=== PATIENT | male | born 1975 | race Caucasian/White ===

== ENCOUNTER → 2021-03-18 | Outpatient (CLI) | payer OTHER ==
--- NOTE | 2021-03-18 12:36 | ECHOF ---
Referral Reason:R01.1 cardiac murmur MEASUREMENTS -------- HEIGHT: 180.3 cm WEIGHT: 72.6 kg BP: RVIDd: 3.7 cm (< 3.3) IVSd: 1.2 cm (0.6 - 1.1) LVIDd: 4.2 cm (3.9 - 5.3) LVPWd: 1.2 cm (0.6 - 1.1) IVSs: 1.3 cm LVIDs: 2.7 cm LVPWs: 1.7 cm LAESV Index (A-L): 18.44 ml/m Ao Diam: 3.1 cm (2.0 - 3.7) AV Cusp: 2.3 cm (1.5 - 2.6) LA Diam: 2.2 cm (2.7 - 3.8) MV EXCURSION: 22.198 mm (> 18.000) MV EF SLOPE: 92 mm/s (70 - 150) EPSS: 0.3 cm MV E Andi: 0.84 m/s MV DecT: 146 ms MV A Andi: 0.73 m/s MV E/A Ratio: 1.15 RAP: 5.00 mmHg RVSP: 26.43 mmHg FINDINGS -------- Sinus rhythm. This was a technically adequate study. The left ventricular size is normal. There is borderline concentric left ventricular hypertrophy. Overall left ventricular systolic function is normal with, an EF between 55 - 60 %. The diastolic filling pattern is normal for the age of the patient 10.99. The right ventricle is mildly enlarged. Normal LA size by volume 22+/-6 ml/m2. The right atrial size is normal. Interatrial and interventricular septum intact. The aortic valve is trileaflet and appears structurally normal. There is no evidence of aortic regu rgitation. There is no evidence of aortic stenosis. Mild mitral regurgitation is present. Mild tricuspid regurgitation present. There is no evidence of pulmonary hypertension. The right v entricular systolic pressure, as measured by Doppler, is 26.43mmHg. There is no pulmonic regurgitation present. The aortic root size is normal. IVC Not well visulized. There is no pericardial effusion. CONCLUSIONS -------- 1. The left ventricular size is normal. 2. There is borderline concentric left ventricular hypertrophy. 3. Overall left ventricular systolic function is normal with, an EF between 55 - 60 %. 4. The right ventricle is mildly enlarged. 5. The aortic valve is trileaflet and appears structurally normal. 6. Mild mitral regurgitation is present. 7. Mild tricuspid regurgitation present. HOSPITAL MEDICINE DIRECTOR: Lilliana Murcia RDCS
== END | disposition home or self-care (01) ==
LOC: RADECHMAIN 10:57
PROVIDERS: ATTEND Family Medicine
DX: I08.1 Rheumatic disorders of both mitral and tricuspid valves (principal)
CPT/HCPCS: 93306

== ENCOUNTER → 2021-05-06 | Outpatient (CLI) | payer OTHER ==
--- NOTE | 2021-05-07 08:29 | EST ---
EXERCISE STRESS AGE: 46 SEX: M HT: 5'11" WT: 160 lbs PROTOCOL: Anil STAGE: 3 DURATION OF EXERCISE: 9:00 HEART RATE REST: 83 BLOOD PRESSURE REST: 121/78 MAXIMUM HEART RATE ACHIEVED: 137 MAXIMUM BLOOD PRESSURE: 153/86 85% MPHR: 150 100% MPHR: 176 METS: 10.3 INDICATIONS: Family history of heart disease RESULTS: Baseline EKG revealed normal sinus rhythm without significant ST-T changes. Patient walked on a standard Anil protocol for 9 minutes, achieved a maximal heart rate of 137 beats per minute, complained of some fatigue, had isolated PVCs. Could not continue any further. He also had some sharp discomfort in the chest. At heart rate of 137 beats per minute, there was no evidence of any ST-segment changes to indicate ischemia. By EKG criteria, this is an inconclusive stress test with limited exercise capacity. If myocardial ischemia is suspected, I would recommend a pharmacological nuclear study. GEORGIE / IRASEMAN: [id number] /
== END | disposition home or self-care (01) ==
LOC: RADNMMAIN 08:21
PROVIDERS: ATTEND Family Medicine
DX: R94.31 Abnormal electrocardiogram [ECG] [EKG] (principal); Z82.49 Family history of ischemic heart disease and other diseases of the circulatory system
CPT/HCPCS: 93017

== ENCOUNTER → 2021-05-10 | Outpatient (CLI) | payer OTHER ==
--- NOTE | 2021-05-10 09:56 | US ---
EXAMINATION TYPE: US liver DATE OF EXAM: 05/10/2021 COMPARISON: NONE CLINICAL HISTORY: R74.01 elevation of levels of liver transaminase. EXAM MEASUREMENTS: Liver Length: 13.1 cm Gallbladder Wall: 0.2 cm CBD: 0.5 cm Right Kidney: 10.8 x 4.2 x 4.8 cm Pancreas: visualized portions wnl Liver: wnl Gallbladder: No stones seen Evidence for sonographic Wagoner's sign: No CBD: wnl Right Kidney: No hydronephrosis or masses seen Pancreas appears within normal limits. Visualized liver appears unremarkable. No gallstones within ga llbladder. No biliary dilatation. No right-sided hydronephrosis. IMPRESSION: No worrisome focal intrahepatic mass or intrahepatic ductal dilatation.
== END | disposition home or self-care (01) ==
LOC: RADUSWWP 08:42
PROVIDERS: ATTEND Family Medicine
DX: R74.01 Elevation of levels of liver transaminase levels (principal)
CPT/HCPCS: 76705

== ENCOUNTER 2021-07-30 05:43 | Day surgery (SDC) | payer OTHER ==
[2021-07-26 14:08] VITALS: BMI 22.3
[2021-07-30] MEDS ORDERED: ALPRAZolam 0.5 MG TAB PO PRN (06:01)
[2021-07-30] MEDS ORDERED: ALPRAZolam 0.25 MG TAB PO PRN (06:01)
[2021-07-30] MEDS ORDERED: SODIUM CHLORIDE 0.9% 1,000 ML in EMPTY BAG 1 BAG IV SCH (06:01)
[2021-07-30] MEDS ORDERED: ASPIRIN 325 MG TAB PO STA (06:01)
[2021-07-30] MEDS ORDERED: NITROGLYCERIN SL TABS 0.4 MG TAB SUBLINGUAL PRN (06:01)
[2021-07-30 06:41] LABS: Basophils # (A) 0.1 k/uL (0-0.2); Basophils % (A) 1 %; Eosinophils # (A) 0.3 k/uL (0-0.7); Eosinophils % (A) 6 %; HCT 45.3 % (39.0-53.0); HGB 15.4 gm/dL (13.0-17.5); Lymphocytes # (A) 2.4 k/uL (1.0-4.8); Lymphocytes % (A) 47 %; MCHC 34.1 g/dL (31.0-37.0); MCV 99.7 fL (80.0-100.0); Monocytes # (A) 0.4 k/uL (0-1.0); Monocytes % (A) 7 %; Neutrophils # (A) 1.8 k/uL (1.3-7.7); Neutrophils % (A) 35 %; Platelet Count 247 k/uL (150-450); RBC 4.54 m/uL (4.30-5.90); RDW 12.3 % (11.5-15.5); WBC 5.1 k/uL (3.8-10.6)
[2021-07-30 06:44] LABS: African American GFR (CKD) >90 (>60 ml/min/1.73 sqM); Anion Gap 7 mmol/L; Blood Urea Nitrogen 14 mg/dL (9-20); Calcium 9.4 mg/dL (8.4-10.2); Carbon Dioxide 27 mmol/L (22-30); Chloride 104 mmol/L (98-107); Glucose 83 mg/dL (74-99); Non-African American GFR(CKD) >90 (>60 ml/min/1.73 sqM); Sodium 138 mmol/L (137-145)
[2021-07-30] MEDS ORDERED: LIDOCAINE 1% INJ 10MG/ML (20 ML MDV) ONE (07:13)
[2021-07-30] MEDS ORDERED: VERAPAMIL 2.5 MG/ML 2 ML AMP ONE (07:13)
[2021-07-30 07:23] VITALS: TEMP 98
[2021-07-30] MEDS ORDERED: HEPARIN SODIUM 1,000 UN/ML (10ML VL) ONE (07:33)
[2021-07-30] MEDS ORDERED: fentaNYL (PF) 50 MCG/ML 2 ML AMP ONE (07:34)
[2021-07-30] MEDS ORDERED: fentaNYL (PF) 50 MCG/ML 2 ML AMP IVP ONE (07:35)
[2021-07-30] MEDS ORDERED: MIDAZOLAM 2 MG/2 ML VIAL IVP ONE (07:35)
[2021-07-30] MEDS ORDERED: LIDOCAINE 1% INJ 10MG/ML (20 ML MDV) SQ ONE (07:37)
[2021-07-30] MEDS ORDERED: VERAPAMIL SYRINGE (5 MG/10 ML) INTRAARTER ONE (07:40)
[2021-07-30] MEDS ORDERED: HEPARIN SODIUM 1,000 UN/ML (10ML VL) IV ONE (07:43)
[2021-07-30] MEDS ORDERED: IOPAMIDOL-370 125ML BTL INJ ONE (07:51)
[2021-07-30] MEDS ORDERED: RX INFO: IV CONTRAST WAS GIVEN 1 EACH MISC MISCELLANE PRN (08:07)
[2021-07-30] MEDS ORDERED: SODIUM CHLORIDE 0.9% 1,000 ML IV SCH (08:15)
--- NOTE | 2021-07-30 09:40 | CC ---
CARDIAC CATHETERIZATION REPORT DATE OF SERVICE: 07/30/2021 INDICATION: Chest pain with abnormal stress test showing ischemia involving the anteroseptal area. PROCEDURE NOTE: After obtaining informed consent, left heart catheterization and coronary angiogram were performed via the right radial artery using 3.5 right and left Jorge catheters. Left ventricular pressures were obtained by advancing the right Jorge into the left ventricle. Patient tolerated the procedure well without any obvious immediate complications. Using a micropuncture needle, right radial artery access was obtained using standard protocols. Local and IV sedation were obtained with a milligram of Versed, 25 mcg of fentanyl, Xylocaine spray and lidocaine injection. Total sedation time was 15 minutes. Wires and catheters were passed into the ascending aorta under fluoroscopic guidance. A TR band will be used to attain hemostasis at the end of the procedure. Patient received 5 mg of verapamil and 4000 units of heparin as per protocol. FINDINGS: HEMODYNAMICS: Left ventricular end-diastolic pressure is 8 to 10 mm. There is no significant gradient across the aortic valve. LEFT VENTRICULOGRAM: Left ventriculogram was not performed. ANGIOGRAPHIC DATA LEFT MAIN CORONARY ARTERY: Left main coronary artery is a short vessel, divides into left anterior descending coronary artery and circumflex coronary artery. LAD and its branches, circumflex coronary artery and its branches are free of significant stenosis. RIGHT CORONARY ARTERY: Right coronary artery is a large dominant vessel and is free of significant disease. CONCLUSIONS: 1. Normal coronary arteries. 2. Normal left ventricular end-diastolic pressure. PLAN: Patient's symptomatology is noncardiac in origin and the stress test is a false- positive stress test. His management is going to be in the form of risk factor modification. MMODL / IJN: [id number] /
--- NOTE | 2021-07-30 09:45 | LTR ---
July 30, 2021 To: Dr. Espinoza Morales Re: Fermin Valdivia ([phone]) Dear Espinoza, I performed cardiac catheterization on Fermin Valdivia. A detailed catheterization note is enclosed for your records. In brief, the cardiac catheterization revealed normal coronary arteries. The patient's chest pain is noncardiac in origin; the stress test is a false-positive stress test. Thank you for giving me the privilege of participating in the care of this pleasant gentleman. Sincerely, Srikanth Bean M.D. GEORGIE / RADHA: [id number] /
[2021-07-30 15:37] VITALS: RESP 16
[2021-07-30 15:39] VITALS: BP 115/80; PULSE 82
== END 2021-07-30 12:25 | disposition home or self-care (01) ==
LOC: CATHCVL 05:43
PROVIDERS: ATTEND Internal Medicine Cardiovascular Disease
DX: R07.9 Chest pain, unspecified (principal); R94.39 Abnormal result of other cardiovascular function study; E78.2 Mixed hyperlipidemia; R01.1 Cardiac murmur, unspecified; J44.9 Chronic obstructive pulmonary disease, unspecified; F41.9 Anxiety disorder, unspecified; Z72.0 Tobacco use; Z79.899 Other long term (current) drug therapy
CPT/HCPCS: 93458; 80048; 85025; C1894; J2250; J2001; J3010; J1644; Q9967